=== PATIENT | male | born 1955 | race Caucasian/White ===

== ENCOUNTER 2016-12-19 14:05 | Outpatient (RCR) | payer OTHER | END 2017-02-05 08:02 | LOC: WSOH 14:05 | DX: S93.401A Sprain of unspecified ligament of right ankle, initial encounter (principal); M25.471 Effusion, right ankle; M54.5 Low back pain; W17.2XXA Fall into hole, initial encounter; Y99.0 Civilian activity done for income or pay ==

== ENCOUNTER 2018-01-23 10:36 | Outpatient (RCR) | payer OTHER | END 2018-03-23 | disposition home or self-care (01) | LOC: WSOH | DX: M54.6 Pain in thoracic spine (principal); X50.0XXA Overexertion from strenuous movement or load, initial encounter; Y99.0 Civilian activity done for income or pay; Z79.899 Other long term (current) drug therapy ==